=== PATIENT | female | born 1990 ===

== ENCOUNTER 2016-11-30 06:00 | Emergency (ER) | payer SELFPAY ==
[~2016-11-30] VITALS: Ht 160 cm; Wt 67.5 kg
[2016-11-30 06:02] VITALS: Ht 160 cm; Wt 67.5 kg
--- NOTE | 2016-11-30 08:04 | ERD ---
ER Documentation Chief Complaint Date/Time DATE: 11/30/16 TIME: 08:02 Chief Complaint requesting STD test HPI Patient is a 26-year-old female with schizophrenia who presents saying "I need an STD test". She said that she noticed discharge from her boyfriend's penis when they had sex 5 years ago. She has no symptoms herself. Please note the history and physical exam is limited secondary to the patient's flight of ideas. She does admit to drug use. Upon review of old medical records this is the patient's first visit to the emergency department. ROS All systems reviewed and are negative except as per history of present illness. Allergies Allergies: Coded Allergies: No Known Allergy (Unverified , 11/30/16) PMhx/Soc Medical and Surgical Hx: pt denies Medical Hx, pt denies Surgical Hx Hx Alcohol Use: Yes Hx Substance Use: No Hx Tobacco Use: Yes Smoking Status: Current some day smoker FmHx Family History: No diabetes Physical Exam Vitals Vital Signs Date Time Temp Pulse Resp B/P Pulse Ox O2 Delivery O2 Flow Rate FiO2 11/30/16 06:02 97.5 75 20 131/74 99 Physical Exam Const: Flight of ideas, pressured speech Head: Atraumatic Eyes: Normal Conjunctiva ENT: Normal External Ears, Nose and Mouth. Neck: Full range of motion..~ No meningismus. Resp: Clear to auscultation bilaterally Cardio: Regular rate and rhythm, no murmurs Abd: Soft, non tender, non distended. Normal bowel sounds Skin: No petechiae or rashes Back: No midline or flank tenderness Ext: No cyanosis, or edema Neur: Awake and moves all 4 extremities Psych: Patient has flight of ideas and pressured speech but no signs of suicidal or homicidal ideation Procedures/MDM Smoking Cessation Therapy: Pt. was lectured for greater than 3 minutes on the health risks of continued smoking and the benefits of cessation. Patient is a 26-year-old female who presents requesting a STD test. However she did not give us a urine sample to be able to test for STD. The patient did admit to drug use including heroin, crack, and methamphetamines. She will need to follow-up with the local clinics within 24-48 hours for reevaluation. I told her to stop using illicit drugs and to stop smoking. She can return for any worsening symptoms. At this point I do not believe she requires 5150 hold. Departure Diagnosis: Primary Impression: Drug abuse Additional Impression: Schizophrenia Schizophrenia type: unspecified Qualified Code: F20.9 - Schizophrenia, unspecified type Condition: Fair Patient Instructions: Drug Abuse Referrals: [facility] YOU HAVE RECEIVED A MEDICAL SCREENING EXAM AND THE RESULTS INDICATE THAT YOU DO NOT HAVE A CONDITION THAT REQUIRES URGENT TREATMENT IN THE EMERGENCY DEPARTMENT. FURTHER EVALUATION AND TREATMENT OF YOUR CONDITION CAN WAIT UNTIL YOU ARE SEEN IN YOUR DOCTORS OFFICE WITHIN THE NEXT 1-2 DAYS. IT IS YOUR RESPONSIBILITY TO MAKE AN APPOINTMENT FOR FOLOW-UP CARE. IF YOU HAVE A PRIMARY DOCTOR --you should call your primary doctor and schedule an appointment IF YOU DO NOT HAVE A PRIMARY DOCTOR YOU CAN CALL OUR PHYSICIAN REFERRAL HOTLINE AT IF YOU CAN NOT AFFORD TO SEE A PHYSICIAN YOU CAN CHOSE FROM THE FOLLOWING [facility] [place] [address] [facility]. [facility] [address] [facility] [facility] [address] [facility]. [facility] [address] [facility] [address]. [facility] [address] [facility]. [facility]. [address] Additional Instructions: Call your primary care doctor TOMORROW for an appointment during the next 1-2 days.See the doctor sooner or return here if your condition worsens before your appointment time. MAYELA FARRIS MD Nov 30, 2016 08:04
== END 2016-11-30 07:12 | disposition left against medical advice (07) ==
LOC: FTE 06:00
DX: F19.10 Other psychoactive substance abuse, uncomplicated (principal); F20.9 Schizophrenia, unspecified; F17.210 Nicotine dependence, cigarettes, uncomplicated
CPT/HCPCS: 99282